=== PATIENT | male | born 1950 | race Caucasian/White ===

== ENCOUNTER 2017-10-06 14:12 | Day surgery (SDC) | payer MEDICARE ==
[~2017-10-06] VITALS: Ht 177.8 cm; Wt 92.8 kg
[~2017-10-06 14:12] MED LIST: ALLO300 PO; ASPI325 PO; ASPI81CH PO; BISA5EC PO; COLCRYS0.6 MG PO; DOCU100 PO; FAMO20 PO; FLUT44OIA; LEVSOD100 PO; LEVSOD137 PO; LOSA50 PO; MELA3 PO; MELATONIN 5 MG1 EACH PO; NEBI10 PO; Prilosec Otc20 MG PO; RANO500T PO; ROPI1 PO; SERT100 PO; Simvastatin20 MG PO; TENEX1 MG; TERB250; Vesicare10 MG PO
[2017-10-06] MEDS ORDERED: FURO20 (14:54)
== END 2017-10-06 17:05 | disposition home or self-care (01) ==
LOC: ORSCSDS 14:12
PROVIDERS: Ophthalmology
PROC: 080NXZZ Alteration of Right Upper Eyelid, External Approach (ICD-10-PCS; principal; 2017-10-06 16:00)
PROC: 080PXZZ Alteration of Left Upper Eyelid, External Approach (ICD-10-PCS; principal; 2017-10-06 16:00)
DX: H02.834 Dermatochalasis of left upper eyelid (principal); H02.831 Dermatochalasis of right upper eyelid; I25.10 Atherosclerotic heart disease of native coronary artery without angina pectoris; G47.33 Obstructive sleep apnea (adult) (pediatric); E11.9 Type 2 diabetes mellitus without complications; E03.9 Hypothyroidism, unspecified; G20 Parkinson's disease; N18.9 Chronic kidney disease, unspecified; Z79.82 Long term (current) use of aspirin; Z79.899 Other long term (current) drug therapy
CPT/HCPCS: J0171; J2250; J7040

== ENCOUNTER → 2019-12-20 | Outpatient (CLI) | payer MEDICARE ==
[~2019-12-20] MED LIST changes: +FURO20
== END | disposition home or self-care (01) ==
LOC: PLD 08:19 → LAB SHORT 08:19
DX: L57.8 Other skin changes due to chronic exposure to nonionizing radiation (principal)
CPT/HCPCS: 88305; 88342

== ENCOUNTER → 2020-12-13 | Outpatient (CLI) | payer MEDICARE ==
[2020-12-13 15:51] LABS: Hematocrit 45.7 % (37.0-53.0); Hemoglobin 15.4 g/dL (13.5-17.5); Mean Corpuscular HGB 32.2 pg (26.0-34.0); Mean Corpuscular HGB Conc 33.7 g/dL (31.5-36.5); Mean Corpuscular Volume 96 fL (80-100); Mean Platelet Volume 10.8 fL (9.1-12.4); Platelet Count 154 K/mm3 (150-400); RDW Standard Deviation 45.3 fL (35.1-46.3); Red Blood Cell Count 4.78 M/mm3 (4.30-5.90); White Blood Cell Count 8.07 K/mm3 (4.00-11.30)
[2020-12-13 15:56] LABS: Bun/Creatinine Ratio 12.3 (12.0-20.0); Calcium, Blood 8.7 mg/dL (8.5-10.1); Creatinine, Blood 1.71 mg/dL (0.60-1.20); Potassium, Blood 4.2 mmol/L (3.5-5.5)
[2020-12-13 16:41] LABS: BAND PERCENT MAN 19 % (0-8); BASOPHILS PERCENT MAN 0 % (0-2); EOSINOPHILS PERCENT MAN 0 % (0-6); LYMPHOCYTES ABSOLUTE MAN 0.32 K/mm3 (0.84-5.20); LYMPHOCYTES PERCENT MAN 4 % (21-46); MONOCYTES ABSOLUTE MAN 0.56 K/mm3 (0.16-1.47); MONOCYTES PERCENT MAN 7 % (4-13); NEUTROPHILS ABSOLUTE MAN 7.18 K/mm3 (1.96-9.15); SEG NEUTROPHILS PERCENT MAN 70 % (41-73); TOTAL CELLS COUNTED 100
== END | disposition home or self-care (01) ==
LOC: LAB SHORT 15:42
PROVIDERS: Physician Assistant Surgical
DX: R42 Dizziness and giddiness (principal); R53.83 Other fatigue
CPT/HCPCS: 80048; 84443; 85025

== ENCOUNTER 2021-04-09 07:44 | Day surgery (SDC) | payer MEDICARE ==
[~2021-04-09] VITALS: Ht 177.8 cm; Wt 83.3 kg
[~2021-04-09 07:44] MED LIST changes: +MIRT15ST; +SINEMET 25-1001 EAC1; +Vitamin B-121000 MCG; +Vitamin D1000 UNI1
--- NOTE | 2021-04-09 08:09 | NUR ---
04/09/21 0809 Kavon Matta CALL LIGHT WITHIN REACH. EYE DROPS AT 0759 PLEDGETT AT 0801
== END 2021-04-09 09:45 | disposition home or self-care (01) ==
LOC: ORSCSDS 07:44
PROVIDERS: Ophthalmology
PROC: 08RJ3JZ Replacement of Right Lens with Synthetic Substitute, Percutaneous Approach (ICD-10-PCS; principal; 2021-04-09 09:00)
DX: H25.11 Age-related nuclear cataract, right eye (principal); I10 Essential (primary) hypertension; I25.10 Atherosclerotic heart disease of native coronary artery without angina pectoris; G47.33 Obstructive sleep apnea (adult) (pediatric); E03.9 Hypothyroidism, unspecified; G20 Parkinson's disease; Z79.82 Long term (current) use of aspirin; Z79.899 Other long term (current) drug therapy
CPT/HCPCS: J2001; J2250; J3010; J3301; J7040; V2632

== ENCOUNTER 2023-03-25 15:27 | Emergency (ER) | payer MEDICARE ==
[~2023-03-25] VITALS: Ht 172.7 cm; Wt 63.5 kg
[2023-03-25 16:11] LABS: BASOPHILS ABSOLUTE AUTO 0.02 K/mm3 (0.00-0.23); BASOPHILS PERCENT AUTO 1 % (0-2); EOSINOPHILS ABSOLUTE AUTO 0.08 K/mm3 (0.00-0.68); EOSINOPHILS PERCENT AUTO 2 % (0-6); Hematocrit 30.7 % (37.0-53.0); Hemoglobin 10.5 g/dL (13.5-17.5); IMMATURE GRAN ABSOLUTE AUTO 0.05 K/mm3 (0.00-0.10); IMMATURE GRAN PERCENT AUTO 1 % (0-1); LYMPHOCYTES ABSOLUTE AUTO 0.51 K/mm3 (0.84-5.20); LYMPHOCYTES PERCENT AUTO 13 % (21-46); MONOCYTES ABSOLUTE AUTO 0.46 K/mm3 (0.16-1.47); MONOCYTES PERCENT AUTO 11 % (4-13); Mean Corpuscular HGB 33.5 pg (26.0-34.0); Mean Corpuscular HGB Conc 34.2 g/dL (31.5-36.5); Mean Corpuscular Volume 98 fL (80-100); Mean Platelet Volume 10.3 fL (9.1-12.4); NEUTROPHILS ABSOLUTE AUTO 2.92 K/mm3 (1.96-9.15); NEUTROPHILS PERCENT AUTO 72 % (41-73); Platelet Count 137 K/mm3 (150-400); RDW Coefficient Variation 13.2 % (11.7-14.2); RDW Standard Deviation 46.8 fL (35.1-46.3); Red Blood Cell Count 3.13 M/mm3 (4.30-5.90); White Blood Cell Count 4.04 K/mm3 (4.00-11.30)
[2023-03-25 16:19] LABS: Calcium, Blood 8.6 mg/dL (8.5-10.1); Creatinine, Blood 1.13 mg/dL (0.60-1.20)
[2023-03-25] MEDS ORDERED: GABA100 (16:34)
[2023-03-25] MEDS ORDERED: METO25ER PO (16:35)
[2023-03-25] MEDS ORDERED: FURO20 PO (16:35)
[2023-03-25 17:04] LABS: Percent Saturation 31.2 % (20.0-50.0)
[2023-03-25 17:45] VITALS: BP 153/74
== END 2023-03-25 17:56 | disposition home or self-care (01) ==
LOC: ER 15:27
PROVIDERS: Student in an Organized Health Care Education/Training Program
DX: S09.90XA Unspecified injury of head, initial encounter (principal); R55 Syncope and collapse; E86.0 Dehydration; G20.C Parkinsonism, unspecified; W18.30XA Fall on same level, unspecified, initial encounter; T50.905A Adverse effect of unspecified drugs, medicaments and biological substances, initial encounter; Z88.8 Allergy status to other drugs, medicaments and biological substances; Z79.899 Other long term (current) drug therapy; Z79.82 Long term (current) use of aspirin
CPT/HCPCS: 70450; 80048; 82728; 83540; 83550; 85025; 93005; 93010; 99285-25; J7030

== ENCOUNTER 2023-09-13 10:54 | Inpatient (IN) | payer MEDICARE ==
[~2023-09-13] VITALS: Ht 177.8 cm; Wt 79.8 kg
[~2023-09-13 10:54] MED LIST changes: +ALLO100 PO; -ALLO300 PO; +FURO40 PO; +GABA100; -LEVSOD100 PO; +LEVSOD150 PO; +METO25ER PO
[2023-09-13] MEDS ORDERED: NS 1,000 ML IV SCH ×2 (11:10→13:25)
[2023-09-13 11:19] LABS: BASOPHILS ABSOLUTE AUTO 0.02 K/mm3 (0.00-0.23); BASOPHILS PERCENT AUTO 0 % (0-2); EOSINOPHILS PERCENT AUTO 0 % (0-6); Hematocrit 33.4 % (37.0-53.0); Hemoglobin 11.2 g/dL (13.5-17.5); IMMATURE GRAN ABSOLUTE AUTO 0.12 K/mm3 (0.00-0.10); IMMATURE GRAN PERCENT AUTO 1 % (0-1); LYMPHOCYTES ABSOLUTE AUTO 0.26 K/mm3 (0.84-5.20); LYMPHOCYTES PERCENT AUTO 2 % (21-46); MONOCYTES ABSOLUTE AUTO 0.66 K/mm3 (0.16-1.47); MONOCYTES PERCENT AUTO 5 % (4-13); Mean Corpuscular HGB 32.2 pg (26.0-34.0); Mean Corpuscular HGB Conc 33.5 g/dL (31.5-36.5); Mean Corpuscular Volume 96 fL (80-100); Mean Platelet Volume 9.3 fL (9.1-12.4); NEUTROPHILS ABSOLUTE AUTO 12.46 K/mm3 (1.96-9.15); NEUTROPHILS PERCENT AUTO 92 % (41-73); Platelet Count 238 K/mm3 (150-400); RDW Coefficient Variation 13.2 % (11.7-14.2); RDW Standard Deviation 46.8 fL (35.1-46.3); Red Blood Cell Count 3.48 M/mm3 (4.30-5.90); White Blood Cell Count 13.52 K/mm3 (4.00-11.30)
[2023-09-13 11:44] LABS: Albumin, Blood 3.2 g/dL (3.4-5.0); Albumin/Globulin Ratio 0.8 (0.8-1.8); Bilirubin, Total 0.9 mg/dL (0.1-1.0); Bun/Creatinine Ratio 17.2 (12.0-20.0); Calcium, Blood 9.1 mg/dL (8.5-10.1); Creatinine, Blood 1.45 mg/dL (0.60-1.20); Globulin, Blood 4.1 g/dL (2.2-4.0); Potassium, Blood 4.4 mmol/L (3.5-5.5); Total Protein, Blood 7.3 g/dL (6.4-8.2)
[2023-09-13 11:45] LABS: BAND PERCENT MAN 1 % (0-8); BASOPHILS PERCENT MAN 0 % (0-2); EOSINOPHILS ABSOLUTE MAN 0.27 K/mm3 (0.00-0.68); EOSINOPHILS PERCENT MAN 2 % (0-6); LYMPHOCYTES ABSOLUTE MAN 0.27 K/mm3 (0.84-5.20); LYMPHOCYTES PERCENT MAN 2 % (21-46); MONOCYTES ABSOLUTE MAN 0.67 K/mm3 (0.16-1.47); MONOCYTES PERCENT MAN 5 % (4-13); SEG NEUTROPHILS PERCENT MAN 90 % (41-73); TOTAL CELLS COUNTED 100
[2023-09-13 12:16] LABS: Source, Urine Clean Catch
[2023-09-13 12:22] LABS: Appearance, Urine Hazy (Clear); Bilirubin, Urine Neg (Neg); Blood, Urine 5+ (Neg); Color, Urine Yellow (P-Yellow); Glucose Qualitative, Urine Neg (Neg); Ketones, Urine Neg (Neg); Leukocyte Esterase, Urine 3+ (Neg); Nitrite, Urine Neg (Neg); Protein, Urine 3+ (Neg); Urobilinogen, Urine NORM (Normal)
[2023-09-13 12:29] LABS: Bacteria Many /hpf; Squamous Epithelial Cells Rare /hpf (Few); White Blood Cells, Urine 25-50 /hpf (0-5)
[2023-09-13] MEDS ORDERED: CefTRIAXone Sodium 1,000 MG in NS 100 ML IV ONE (12:55)
[2023-09-13] MEDS ORDERED: CARBIDOPA-LEVO1 EA21 PO (16:24)
[2023-09-13] MEDS ORDERED: CARBLEV250 PO (16:26)
[2023-09-13] MEDS ORDERED: CARBIDOPA-LEVO1 EA15 PO (16:26)
[2023-09-13] MEDS ORDERED: GABA100 PO (16:28)
[2023-09-13 17:08] VITALS: BP 149/88
[2023-09-13] MEDS ORDERED: Acetaminophen 325 MG TABLET PO PRN (17:15)
--- NOTE | 2023-09-13 18:31 | NUR ---
PT ARRIVED TO ROOM AT 1700. PT FELT VERY HOT TO THE TOUCH AND IS AOX1 WITH CONFUSION. PT IS RESTLESS IN BED AND SEEMS TO BE SHAKING A LOT. 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 TEMP WAS 101.[address] VALE ORDERED TYLENOL TO EMAR. TYLENOL WAS GIVEN AND TEMP WILL BE RECHECK. PT IS CURRENTLY SLEEPING WITH SON AT BEDSIDE AND BED ALARM IS ON. PT IS INCONTENTENT OF URINE AT THIS TIME. WILL CONTINUE TO MONITOR.
[2023-09-13 19:55] VITALS: BP 128/80
[2023-09-13] MEDS ORDERED: Levodopa/Carbidopa 100 / 10 MG Tab PO SCH (20:00)
[2023-09-13] MEDS ORDERED: Levodopa/Carbidopa 100/25 MG Tab *CR PO SCH (21:00)
[2023-09-13] MEDS ORDERED: Melatonin 5 MG Tablet PO SCH (21:00)
[2023-09-14 03:23] VITALS: BP 137/90
[2023-09-14] MEDS ORDERED: Levothyroxine Sodium 0.15 MG Tab PO SCH (06:00)
[2023-09-14 06:07] LABS: BASOPHILS ABSOLUTE AUTO 0.02 K/mm3 (0.00-0.23); BASOPHILS PERCENT AUTO 0 % (0-2); EOSINOPHILS PERCENT AUTO 0 % (0-6); Hematocrit 31.8 % (37.0-53.0); Hemoglobin 10.6 g/dL (13.5-17.5); IMMATURE GRAN ABSOLUTE AUTO 0.13 K/mm3 (0.00-0.10); IMMATURE GRAN PERCENT AUTO 1 % (0-1); LYMPHOCYTES PERCENT AUTO 1 % (21-46); MONOCYTES ABSOLUTE AUTO 0.52 K/mm3 (0.16-1.47); MONOCYTES PERCENT AUTO 4 % (4-13); Mean Corpuscular HGB 32.2 pg (26.0-34.0); Mean Corpuscular HGB Conc 33.3 g/dL (31.5-36.5); Mean Corpuscular Volume 97 fL (80-100); Mean Platelet Volume 9.3 fL (9.1-12.4); NEUTROPHILS ABSOLUTE AUTO 14.12 K/mm3 (1.96-9.15); NEUTROPHILS PERCENT AUTO 94 % (41-73); Platelet Count 179 K/mm3 (150-400); RDW Coefficient Variation 13.5 % (11.7-14.2); RDW Standard Deviation 48.3 fL (35.1-46.3); Red Blood Cell Count 3.29 M/mm3 (4.30-5.90); White Blood Cell Count 14.99 K/mm3 (4.00-11.30)
[2023-09-14 06:43] LABS: Albumin, Blood 2.8 g/dL (3.4-5.0); Anion Gap 10 mmol/L (3-11); Blood Urea Nitrogen 26 mg/dL (8-24); Bun/Creatinine Ratio 18.3 (12.0-20.0); CO2, Blood 25 mmol/L (21-32); Calcium, Blood 8.6 mg/dL (8.5-10.1); Chloride, Blood 108 mmol/L (98-108); Creatinine, Blood 1.42 mg/dL (0.60-1.20); Glomerular Filtration Rate 52 (60-); Glucose, Blood 101 mg/dL (70-99); Magnesium, Blood 1.9 mg/dL (1.6-2.4); Phosphorus, Blood 2.3 mg/dL (2.5-4.9); Potassium, Blood 3.6 mmol/L (3.5-5.5); Sodium, Blood 139 mmol/L (136-145)
[2023-09-14 06:59] LABS: BAND PERCENT MAN 3 % (0-8); BASOPHILS PERCENT MAN 0 % (0-2); EOSINOPHILS PERCENT MAN 0 % (0-6); LYMPHOCYTES ABSOLUTE MAN 0.29 K/mm3 (0.84-5.20); LYMPHOCYTES PERCENT MAN 2 % (21-46); MONOCYTES ABSOLUTE MAN 0.29 K/mm3 (0.16-1.47); MONOCYTES PERCENT MAN 2 % (4-13); NEUTROPHILS ABSOLUTE MAN 14.39 K/mm3 (1.96-9.15); SEG NEUTROPHILS PERCENT MAN 93 % (41-73); TOTAL CELLS COUNTED 100
[2023-09-14 07:28] VITALS: BP 122/71
[2023-09-14] MEDS ORDERED: Heparin Sodium,Porcine 5,000 UNIT/0.5 ML SDV SC SCH (09:00)
[2023-09-14] MEDS ORDERED: CefTRIAXone Sodium 1,000 MG in NS 100 ML IV SCH (09:00)
[2023-09-14] MEDS ORDERED: Aspirin 81 MG Chew PO SCH (09:00)
[2023-09-14] MEDS ORDERED: Metoprolol Succinate 25 MG TABCR PO SCH (09:00)
--- NOTE | 2023-09-14 09:16 | NUR ---
SHIFT SUMMARY PT IS A&OX2-3, HE DOES NOT KNOW THE SITUATION OR THE DATE. VSS ON RA, T MAX 100.4. PRN TYLENOL GIVEN FOR COMFORT. PT INCONTINENT OF URINE, BRIEF IN PLACE. NO BM THIS SHIFT. TOLERATING THIN LIQUIDS AND PILLS WHOLE TWO AT A TIME WITH WATER. PT HAS ABRASIONS ON BOTH KNEES AND BRUISES SCATTERED T/O R/T RECENT FALLS. PT HAS EXTREME TREMORS IN ALL EXTREMETIES R/T PARKINSONS. BED IN LOWEST POSITION, CALL LIGHT WITHIN REACH. BED ALARM SET FOR PT'S SAFETY AND FREQUENT ROUNDING DONE. + BLOOD CULTURES IN TWO SETS, GRAM NEGATIVE BACILLI.
[2023-09-14 16:02] VITALS: BP 115/67
--- NOTE | 2023-09-14 16:41 | NUR ---
PT IS IMPROVING AND AT THIS POINT IN SHIFT WOULD BE AOX2 WITH CONFUSION. PT WAS EVEN REQUESTING THE AID BY HER NAME AND AT THE START OF SHIFT WOULD NOT HAVE BEEN ABLE TO. PT IS RESTING IN BED WAS A 1 PERSON WITH WALKER TO RESTROOM AND REQUESTED TO BE TAKEN IN FOR A BOWEL MOVEMENT. PT DOING WELL AT THIS TIME AND HAS NOT BEEN IMPULSIVE. CALL LIGHT IS WITHIN REACH WILL CONTINUE TO MONITOR.
[2023-09-14] MEDS ORDERED: Mirtazapine 15 MG SoluTab PO SCH (18:00)
[2023-09-14] MEDS ORDERED: Gabapentin 100 MG Cap PO SCH (18:00)
[2023-09-14 19:48] VITALS: BP 86/60
[2023-09-14 19:51] VITALS: BP 91/56
[2023-09-14] MEDS ORDERED: Sodium Chloride 0.45% 1,000 ML IV SCH (20:10)
[2023-09-15 03:12] VITALS: BP 137/77
--- NOTE | 2023-09-15 05:56 | NUR ---
Patient slept most of night. Very somnolent and difficult to wake early in shift to safely take HS medications. two large incontinent voids overnight. Woke early in AM and was conversant and easily cooperative with this RN to change positions and take medications. one liter 0.45 saline infused through shift.
[2023-09-15 06:27] LABS: BASOPHILS ABSOLUTE AUTO 0.03 K/mm3 (0.00-0.23); BASOPHILS PERCENT AUTO 0 % (0-2); EOSINOPHILS ABSOLUTE AUTO 0.01 K/mm3 (0.00-0.68); EOSINOPHILS PERCENT AUTO 0 % (0-6); Hematocrit 32.4 % (37.0-53.0); Hemoglobin 10.5 g/dL (13.5-17.5); IMMATURE GRAN ABSOLUTE AUTO 0.27 K/mm3 (0.00-0.10); IMMATURE GRAN PERCENT AUTO 2 % (0-1); LYMPHOCYTES ABSOLUTE AUTO 0.25 K/mm3 (0.84-5.20); LYMPHOCYTES PERCENT AUTO 2 % (21-46); MONOCYTES ABSOLUTE AUTO 0.47 K/mm3 (0.16-1.47); MONOCYTES PERCENT AUTO 4 % (4-13); Mean Corpuscular HGB 32.1 pg (26.0-34.0); Mean Corpuscular HGB Conc 32.4 g/dL (31.5-36.5); Mean Corpuscular Volume 99 fL (80-100); Mean Platelet Volume 9.8 fL (9.1-12.4); NEUTROPHILS PERCENT AUTO 92 % (41-73); Platelet Count 161 K/mm3 (150-400); RDW Coefficient Variation 13.7 % (11.7-14.2); RDW Standard Deviation 50.5 fL (35.1-46.3); Red Blood Cell Count 3.27 M/mm3 (4.30-5.90); White Blood Cell Count 12.63 K/mm3 (4.00-11.30)
[2023-09-15 06:49] LABS: Albumin, Blood 2.4 g/dL (3.4-5.0); Anion Gap 12 mmol/L (3-11); Blood Urea Nitrogen 33 mg/dL (8-24); Bun/Creatinine Ratio 24.4 (12.0-20.0); CO2, Blood 23 mmol/L (21-32); Calcium, Blood 8.2 mg/dL (8.5-10.1); Chloride, Blood 103 mmol/L (98-108); Creatinine, Blood 1.35 mg/dL (0.60-1.20); Glomerular Filtration Rate 55 (60-); Glucose, Blood 97 mg/dL (70-99); Phosphorus, Blood 2.9 mg/dL (2.5-4.9); Potassium, Blood 4.1 mmol/L (3.5-5.5); Sodium, Blood 134 mmol/L (136-145)
[2023-09-15 07:03] LABS: BAND PERCENT MAN 2 % (0-8); BASOPHILS PERCENT MAN 0 % (0-2); EOSINOPHILS PERCENT MAN 0 % (0-6); LYMPHOCYTES ABSOLUTE MAN 0.12 K/mm3 (0.84-5.20); LYMPHOCYTES PERCENT MAN 1 % (21-46); MONOCYTES ABSOLUTE MAN 0.25 K/mm3 (0.16-1.47); MONOCYTES PERCENT MAN 2 % (4-13); NEUTROPHILS ABSOLUTE MAN 12.25 K/mm3 (1.96-9.15); SEG NEUTROPHILS PERCENT MAN 95 % (41-73); TOTAL CELLS COUNTED 100
[2023-09-15 07:50] VITALS: BP 115/88
--- NOTE | 2023-09-15 16:35 | NUR ---
SHIFT SUMMARY MR ORTEGA IS ABLE TO ANSWER ORIENTATION QUESTIONS, SOMETIMES FORGETFUL BUT APPROPRIATE CONVERSATION. HE WORKED WITH OT, PT AND ST TODAY, AMBULATED IN THE HALLS, SAT UP IN THE CHAIR FOR A FEW HOURS, WALKED IN TO THE BATHROOM. 1 PERSON ASSIST, FWW AND GAIT BELT FOR AMBULATION. POOR APPETITE, FOOD AND FLUIDS ENCOURAGED. SUPPORTIVE FAMILY AT BEDSIDE. MR ORTEGA TENDS TO LEAN TO HIS RIGHT WHEN SITTING AND LYING. HE SAID THIS IS FROM HAVING THE RIGHT LEG SHORTER THAN THE LEFT FOR SO MANY YEARS. HIS CARE WORKER BROUGHT HIS IN TO VISIT TODAY. WHEN MR ORTEGA IS DISCHARGED SON DEREK AND CARE WORKER SAID THEY WILL HAVE 24HR CARE WORKERS AVAILABLE FROM A PRIVATE AGENCY. FEVER THIS AM ~101.5 IMPROVED AFTER TYLENOL. BED LOW, CALL LIGHT IN REACH, BED AND CHAIR ALARMS IN USE.
[2023-09-15 16:49] VITALS: BP 145/88
[2023-09-15 19:38] VITALS: BP 146/77
[2023-09-16 03:05] VITALS: BP 116/80
--- NOTE | 2023-09-16 04:55 | NUR ---
SHIFT SUMMARY 73 YR M ADMITTED ON 09/13/23. DNR. NO ACUTE CHANGES THIS SHIFT. PT HAS BEEN CONT/INCONT THIS SHIFT. HE CALLED FOR ASSISTANCE TO THE BATHROOM BUT HAD ALREADY BEEN INCONT. HE HAS SLEPT FOR MOST OF THIS SHIFT. BED IN LOW POSITION AND CALL LIGHT IN REACH. BED ALARM ON FOR SAFETY.
[2023-09-16 06:09] LABS: BASOPHILS ABSOLUTE AUTO 0.04 K/mm3 (0.00-0.23); BASOPHILS PERCENT AUTO 0 % (0-2); EOSINOPHILS ABSOLUTE AUTO 0.02 K/mm3 (0.00-0.68); EOSINOPHILS PERCENT AUTO 0 % (0-6); Hematocrit 32.3 % (37.0-53.0); Hemoglobin 10.5 g/dL (13.5-17.5); IMMATURE GRAN ABSOLUTE AUTO 0.19 K/mm3 (0.00-0.10); IMMATURE GRAN PERCENT AUTO 2 % (0-1); LYMPHOCYTES ABSOLUTE AUTO 0.26 K/mm3 (0.84-5.20); LYMPHOCYTES PERCENT AUTO 2 % (21-46); MONOCYTES ABSOLUTE AUTO 0.73 K/mm3 (0.16-1.47); MONOCYTES PERCENT AUTO 6 % (4-13); Mean Corpuscular HGB 31.9 pg (26.0-34.0); Mean Corpuscular HGB Conc 32.5 g/dL (31.5-36.5); Mean Corpuscular Volume 98 fL (80-100); Mean Platelet Volume 10.2 fL (9.1-12.4); NEUTROPHILS ABSOLUTE AUTO 10.87 K/mm3 (1.96-9.15); NEUTROPHILS PERCENT AUTO 90 % (41-73); Platelet Count 168 K/mm3 (150-400); RDW Coefficient Variation 13.6 % (11.7-14.2); RDW Standard Deviation 48.9 fL (35.1-46.3); Red Blood Cell Count 3.29 M/mm3 (4.30-5.90); White Blood Cell Count 12.11 K/mm3 (4.00-11.30)
[2023-09-16 06:42] LABS: Magnesium, Blood 2.3 mg/dL (1.6-2.4)
[2023-09-16 06:43] LABS: Albumin, Blood 2.2 g/dL (3.4-5.0); Anion Gap 13 mmol/L (3-11); Blood Urea Nitrogen 40 mg/dL (8-24); Bun/Creatinine Ratio 20.6 (12.0-20.0); CO2, Blood 22 mmol/L (21-32); Calcium, Blood 8.6 mg/dL (8.5-10.1); Chloride, Blood 103 mmol/L (98-108); Creatinine, Blood 1.94 mg/dL (0.60-1.20); Glomerular Filtration Rate 35 (60-); Glucose, Blood 99 mg/dL (70-99); Phosphorus, Blood 3.1 mg/dL (2.5-4.9); Sodium, Blood 134 mmol/L (136-145)
[2023-09-16 07:30] VITALS: BP 137/81
[2023-09-16 16:03] VITALS: BP 127/79
[2023-09-16] MEDS ORDERED: Acetaminophen325 M1 PO (16:46)
[2023-09-16] MEDS ORDERED: SULTRIDS PO (16:46)
--- NOTE | 2023-09-16 17:32 | NUR ---
SHIFT/DISCHARGE SUMMARY: PATIENT A/OX3, FLAT AFFECT, PLEASANT AND COOPERATIVE c CARE. PATIENT DENIES CP/PRESSURE, N/V, DIZZINESS, SOB AND NO FEVER. PATIENT INCON/CONTIN OF BLADDER, AMBULATES TO BATHROOM/BACK TO BED/CHAIR c 1 ASSIST/GAITBELT AND FWW. PATIENT EATING AND DRINKING WELL c NO SIGNS OF DIFFICULTY SWALLOWING. PATIENT RECEIVED IV ABX AND SCHEDULED MEDS PER EMAR. VITAL SIGNS REVIEWED. PIV TO R FOREARM DC'D. PATIENT DISCHARGE HOME. DISCHARGE INSTRUCTIONS PACKET GIVEN TO PATIENT. EDUCATE PATIENT REGARDING ADMITTING DX'S SEPSIS D/T UTI, S/S, TX, NEW PRESCRIBED RX, SELF CARE, HH SERVICES, AND TO FOLLOW UP c PCP. PATIENT/SON AT BEDSIDE VERBALIZED UNDERSTANDING AND NO FURTHER QUESTIONS AT THIS TIME. RX WAS FAXED TO PATIENT PREFERRED PHARMACY-[facility]. ALL PATIENT PERSONAL BELONGINGS WERE SENT HOME c THE PATIENT. PATIENT LEFT THE ROOM AT 1720 AND WAS TRANSPORTED VIA WHEELCHAIR BY LOG LOADER STAFF, ASHLEY PATTON TO PATIENT ENTRANCE.
== END 2023-09-16 17:24 | disposition home health service (06) | DRG 871 ==
LOC: ER 10:54 → MEDS 14:50
PROVIDERS: Emergency Medicine; ADMIT Family Medicine
DX: A41.50 Gram-negative sepsis, unspecified (principal); G93.41 Metabolic encephalopathy; N17.9 Acute kidney failure, unspecified; G20.A1 Parkinson's disease without dyskinesia, without mention of fluctuations; E03.9 Hypothyroidism, unspecified; E78.5 Hyperlipidemia, unspecified; M10.9 Gout, unspecified; K21.9 Gastro-esophageal reflux disease without esophagitis; E11.40 Type 2 diabetes mellitus with diabetic neuropathy, unspecified; Z66 Do not resuscitate; F32.A Depression, unspecified; I25.10 Atherosclerotic heart disease of native coronary artery without angina pectoris; H26.9 Unspecified cataract; N40.0 Benign prostatic hyperplasia without lower urinary tract symptoms; Z85.46 Personal history of malignant neoplasm of prostate; I12.9 Hypertensive chronic kidney disease with stage 1 through stage 4 chronic kidney disease, or unspecified chronic kidney disease; E11.22 Type 2 diabetes mellitus with diabetic chronic kidney disease; N18.9 Chronic kidney disease, unspecified; E66.3 Overweight; Z88.8 Allergy status to other drugs, medicaments and biological substances; Z79.899 Other long term (current) drug therapy; Z79.82 Long term (current) use of aspirin; Z79.890 Hormone replacement therapy; Z95.5 Presence of coronary angioplasty implant and graft; Z98.890 Other specified postprocedural states
CPT/HCPCS: 36415; 71045; 80053; 80069; 81001; 83605; 83735; 84484; 85025; 87040; 87077; 87086; 87186; 92526; 92610; 93005; 93010; 96361; 96365; 97110; 97112; 97116; 97162; 97166; 97530; 97535; 99285-25; A9270; J0696; J1644; J7030

== ENCOUNTER 2023-09-21 22:07 | Inpatient (IN) | payer MEDICARE ==
[~2023-09-21] VITALS: Ht 177.8 cm; Wt 78.3 kg
[~2023-09-21 22:07] MED LIST changes: +Acetaminophen325 M1 PO; +CARBIDOPA-LEVO1 EA15 PO; +CARBIDOPA-LEVO1 EA21 PO; +CARBLEV250 PO; +GABA100 PO; +SULTRIDS PO
[2023-09-21 22:30] LABS: Hematocrit 28.3 % (37.0-53.0); Hemoglobin 9.2 g/dL (13.5-17.5); Mean Corpuscular HGB 31.6 pg (26.0-34.0); Mean Corpuscular HGB Conc 32.5 g/dL (31.5-36.5); Mean Corpuscular Volume 97 fL (80-100); Mean Platelet Volume 9.8 fL (9.1-12.4); Platelet Count 262 K/mm3 (150-400); RDW Coefficient Variation 13.7 % (11.7-14.2); RDW Standard Deviation 49.2 fL (35.1-46.3); Red Blood Cell Count 2.91 M/mm3 (4.30-5.90); White Blood Cell Count 9.38 K/mm3 (4.00-11.30)
[2023-09-21 22:57] LABS: Albumin, Blood 2.4 g/dL (3.4-5.0); Albumin/Globulin Ratio 0.7 (0.8-1.8); Bilirubin, Total 0.4 mg/dL (0.1-1.0); Calcium, Blood 8.3 mg/dL (8.5-10.1); Creatinine, Blood 2.18 mg/dL (0.60-1.20); Globulin, Blood 3.5 g/dL (2.2-4.0); Potassium, Blood 4.4 mmol/L (3.5-5.5); Total Protein, Blood 5.9 g/dL (6.4-8.2)
[2023-09-21 23:33] LABS: BAND PERCENT MAN 8 % (0-8); BASOPHILS PERCENT MAN 0 % (0-2); EOSINOPHILS PERCENT MAN 0 % (0-6); LYMPHOCYTES % ATYPICAL MANUAL 1 % (0-0); LYMPHOCYTES ABSOLUTE MAN 0.28 K/mm3 (0.84-5.20); LYMPHOCYTES PERCENT MAN 2 % (21-46); METAMYELOCYTE ABSOLUTE MAN 0.46 K/mm3 (0.00-0.00); METAMYELOCYTE PERCENT MAN 5 % (0-0); MONOCYTES ABSOLUTE MAN 0.56 K/mm3 (0.16-1.47); MONOCYTES PERCENT MAN 6 % (4-13); MYELOCYTE ABSOLUTE MAN 0.28 K/mm3 (0.00-0.00); MYELOCYTE PERCENT MAN 3 % (0-0); NEUTROPHILS ABSOLUTE MAN 7.78 K/mm3 (1.96-9.15); SEG NEUTROPHILS PERCENT MAN 75 % (41-73); TOTAL CELLS COUNTED 100
[2023-09-22] MEDS ORDERED: NS 1,000 ML IV SCH ×2 (00:25→13:00)
[2023-09-22 02:36] LABS: Hematocrit 26.7 % (37.0-53.0); Hemoglobin 8.7 g/dL (13.5-17.5); Mean Corpuscular HGB 32.1 pg (26.0-34.0); Mean Corpuscular HGB Conc 32.6 g/dL (31.5-36.5); Mean Corpuscular Volume 99 fL (80-100); Mean Platelet Volume 9.5 fL (9.1-12.4); Platelet Count 234 K/mm3 (150-400); RDW Coefficient Variation 13.9 % (11.7-14.2); RDW Standard Deviation 49.7 fL (35.1-46.3); Red Blood Cell Count 2.71 M/mm3 (4.30-5.90); White Blood Cell Count 8.42 K/mm3 (4.00-11.30)
[2023-09-22 03:13] LABS: Albumin, Blood 2.3 g/dL (3.4-5.0); Albumin/Globulin Ratio 0.7 (0.8-1.8); Bilirubin, Total 0.3 mg/dL (0.1-1.0); Bun/Creatinine Ratio 10.7 (12.0-20.0); Calcium, Blood 7.9 mg/dL (8.5-10.1); Creatinine, Blood 2.14 mg/dL (0.60-1.20); Globulin, Blood 3.3 g/dL (2.2-4.0); Potassium, Blood 4.1 mmol/L (3.5-5.5); Total Protein, Blood 5.6 g/dL (6.4-8.2)
[2023-09-22 03:25] LABS: BAND PERCENT MAN 13 % (0-8); BASOPHILS ABSOLUTE MAN 0.08 K/mm3 (0.00-0.23); BASOPHILS PERCENT MAN 1 % (0-2); EOSINOPHILS ABSOLUTE MAN 0.25 K/mm3 (0.00-0.68); EOSINOPHILS PERCENT MAN 3 % (0-6); LYMPHOCYTES ABSOLUTE MAN 0.25 K/mm3 (0.84-5.20); LYMPHOCYTES PERCENT MAN 3 % (21-46); METAMYELOCYTE ABSOLUTE MAN 0.16 K/mm3 (0.00-0.00); METAMYELOCYTE PERCENT MAN 2 % (0-0); MONOCYTES ABSOLUTE MAN 0.08 K/mm3 (0.16-1.47); MONOCYTES PERCENT MAN 1 % (4-13); MYELOCYTE ABSOLUTE MAN 0.25 K/mm3 (0.00-0.00); MYELOCYTE PERCENT MAN 3 % (0-0); NEUTROPHILS ABSOLUTE MAN 7.32 K/mm3 (1.96-9.15); SEG NEUTROPHILS PERCENT MAN 74 % (41-73); TOTAL CELLS COUNTED 100
[2023-09-22] MEDS ORDERED: Acetaminophen 325 MG TABLET PO PRN (04:45)
--- NOTE | 2023-09-22 06:15 | NUR ---
NEW ADMIT PATIENT ADMITTED TO MEDICAL FLOOR FROM ER FOR ACUTE ON CHRONIS RENAL INSUFFICIENCY. PATIENT HAS CONDOM CATH IN PLACE. PATIENT IS A 1-2 PERSON ASSIST WITH FWW. PATIENT USES FWW AT BASELINE. PATIENT HAS CAREGIVER THAT IS IN FOR HALF DAYS TUESDAY THRU TUESDAY. PATIENT IS ABLE TO MAKE HIS NEEDS KNOWN. PATIENT RECENTLY SEEN INPATIENT IN AUGUST. PATIENT DENIES CHEST PAIN/PRESSURE/TIGHTNESS. PATIENT DENIES OTHER PAIN. PATIENT HAS A CONDOM CATH IN PLACE FOR INCONTINENCE. PATIENT REPORTS HE KNOWS WHEN HE NEEDS TO HAVE A BM AND SELDOM HAS INCONTINENCE WITH BOWEL. 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 IV TO LEFT AC IS PATENT. PATIENTS BED IS LOCKED IN THE LOWEST POSITION WITH CALL LIGHT IN REACH. CARE IS ONGOING.
[2023-09-22 06:19] VITALS: BP 132/81
[2023-09-22 06:43] LABS: Percent Saturation 17.6 % (20.0-50.0)
[2023-09-22 07:22] VITALS: BP 132/95
[2023-09-22 13:41] VITALS: BP 149/85
[2023-09-22] MEDS ORDERED: LEVODOPA PO SCH (14:00)
[2023-09-22] MEDS ORDERED: RAPDIS PO SCH (14:00)
[2023-09-22] MEDS ORDERED: CARBIDOPA PO SCH (14:00)
[2023-09-22] MEDS ORDERED: Levothyroxine Sodium 0.15 MG Tab PO SCH (14:20)
[2023-09-22] MEDS ORDERED: POTA8 PO (15:04)
[2023-09-22] MEDS ORDERED: Simvastatin40 MG PO (15:05)
[2023-09-22] MEDS ORDERED: ZOLOFT10013 PO (15:06)
[2023-09-22] MEDS ORDERED: Levodopa/Carbidopa 100 / 10 MG Tab PO SCH (16:00)
[2023-09-22 16:42] LABS: Albumin, Blood 2.4 g/dL (3.4-5.0); Albumin/Globulin Ratio 0.6 (0.8-1.8); Bilirubin, Total 0.3 mg/dL (0.1-1.0); Calcium, Blood 8.2 mg/dL (8.5-10.1); Creatinine, Blood 2.12 mg/dL (0.60-1.20); Globulin, Blood 3.8 g/dL (2.2-4.0); Potassium, Blood 4.5 mmol/L (3.5-5.5); Total Protein, Blood 6.2 g/dL (6.4-8.2)
--- NOTE | 2023-09-22 18:31 | NUR ---
SHIFT SUMMARY- PT ALERT AND ORIENTED. 1-2 PA WITH TRANSFERS. PT WAS UNABLE TO MAINTAIN CONDOM CATH. CALLED [facility] AND REQUESTED THE SMALLEST CONDOM CATH. ORDERED A UA WITH CULTURE IF INDICATED THE PT WAS PREVIOUSLY ADMITTED WITH UROSEPSIS AND SENT HOME ON ANTIBIOTICS. PT HAD APPROX 5 DAYS LEFT OF ABX. ORDERED UA TO ENSURE ABX ARE STILL NEEDED FOR THIS PT. DR HAAS WANTED TO DO A RENAL CT HOWEVER THE PT RENAL FUNCTION WAS TOO POOR. PT RECIEVED A 1L FLUID BOLUS AND LAB RECHECK SHOWS THE RENAL FUNCTION UNCHANGED. SPOKE TO AFTER THE RESULTS POSTED. NEW PLAN IS TO HOLD OFF ON THE CT WITH CONTRAST AND RECHECK THE PT KIDNEY FUNCTION IN THE AM. PT IN BED, CALL LIGHT IN REACH. HE HAS BEEN SLEEPING OFF AND ON T/O THE DAY, NO CURRENT S&S OF DISTRESS NOTED.
[2023-09-22 19:15] LABS: Source, Urine Clean Catch
[2023-09-22 19:19] LABS: Bilirubin, Urine Neg (Neg); Blood, Urine 4+ (Neg); Glucose Qualitative, Urine Neg (Neg); Ketones, Urine Neg (Neg); Leukocyte Esterase, Urine 3+ (Neg); Nitrite, Urine Neg (Neg); Protein, Urine Neg (Neg); Urobilinogen, Urine NORM (Normal)
[2023-09-22 19:28] LABS: Appearance, Urine Hazy (Clear); Color, Urine Pale Yellow (P-Yellow)
[2023-09-22 19:30] LABS: Amorphous Light (0-Heavy); Bacteria Mod /hpf; Red Blood Cells, Urine 0-2 /hpf (0-2); Squamous Epithelial Cells Few /hpf (Few); White Blood Cells, Urine 50-100 /hpf (0-5)
[2023-09-22 20:21] VITALS: BP 145/84
[2023-09-22] MEDS ORDERED: Gabapentin 100 MG Cap PO SCH (21:00)
[2023-09-23 04:27] VITALS: BP 142/89
--- NOTE | 2023-09-23 05:04 | NUR ---
END OF SHIFT SUMMARY PT A&OX4, FLAT AFFECT. HX OF PARKINSONS, TREMORS PRESENT TO BUE. NOOB THIS SHIFT. FREQUENT URINARY INCONTINENCE, CHANGED BRIEF/BURRITO NEEDED. DENIED PAIN. NO ACUTE EVENTS OVERNIGHT.
[2023-09-23 05:35] LABS: Hematocrit 28.9 % (37.0-53.0); Hemoglobin 9.5 g/dL (13.5-17.5); Mean Corpuscular HGB 31.6 pg (26.0-34.0); Mean Corpuscular HGB Conc 32.9 g/dL (31.5-36.5); Mean Corpuscular Volume 96 fL (80-100); Mean Platelet Volume 9.5 fL (9.1-12.4); Platelet Count 253 K/mm3 (150-400); RDW Coefficient Variation 13.8 % (11.7-14.2); RDW Standard Deviation 49.2 fL (35.1-46.3); Red Blood Cell Count 3.01 M/mm3 (4.30-5.90); White Blood Cell Count 9.12 K/mm3 (4.00-11.30)
[2023-09-23] MEDS ORDERED: Levothyroxine Sodium 0.15 MG Tab PO SCH (06:00)
[2023-09-23 06:28] LABS: Albumin, Blood 2.5 g/dL (3.4-5.0); Albumin/Globulin Ratio 0.7 (0.8-1.8); Bilirubin, Total 0.4 mg/dL (0.1-1.0); Bun/Creatinine Ratio 7.9 (12.0-20.0); Calcium, Blood 8.6 mg/dL (8.5-10.1); Creatinine, Blood 2.16 mg/dL (0.60-1.20); Globulin, Blood 3.7 g/dL (2.2-4.0); Potassium, Blood 4.4 mmol/L (3.5-5.5); Total Protein, Blood 6.2 g/dL (6.4-8.2)
[2023-09-23 06:36] LABS: BAND PERCENT MAN 4 % (0-8); BASOPHILS PERCENT MAN 0 % (0-2); EOSINOPHILS PERCENT MAN 0 % (0-6); LYMPHOCYTES ABSOLUTE MAN 0.27 K/mm3 (0.84-5.20); LYMPHOCYTES PERCENT MAN 3 % (21-46); METAMYELOCYTE ABSOLUTE MAN 0.27 K/mm3 (0.00-0.00); METAMYELOCYTE PERCENT MAN 3 % (0-0); MONOCYTES ABSOLUTE MAN 0.45 K/mm3 (0.16-1.47); MONOCYTES PERCENT MAN 5 % (4-13); MYELOCYTE ABSOLUTE MAN 0.18 K/mm3 (0.00-0.00); MYELOCYTE PERCENT MAN 2 % (0-0); NEUTROPHILS ABSOLUTE MAN 7.93 K/mm3 (1.96-9.15); SEG NEUTROPHILS PERCENT MAN 83 % (41-73); TOTAL CELLS COUNTED 100
[2023-09-23] MEDS ORDERED: NS 1,000 ML IV SCH ×2 (07:30→20:10)
[2023-09-23 07:32] VITALS: BP 136/102
[2023-09-23] MEDS ORDERED: CefTRIAXone Sodium 1,000 MG in NS 100 ML IV SCH (08:00)
[2023-09-23] MEDS ORDERED: Heparin Sodium,Porcine 5,000 UNIT/0.5 ML SDV SC SCH (09:00)
[2023-09-23] MEDS ORDERED: Gabapentin 100 MG Cap PO SCH (09:00)
--- NOTE | 2023-09-23 10:36 | NUR ---
TALKED TO DR BRITO. NO BM 09/17. OKAY START MIRALAX BID
[2023-09-23] MEDS ORDERED: Polyethylene Glycol 3350 17 gm PO SCH (10:50)
[2023-09-23 12:26] LABS: Albumin, Blood 2.5 g/dL (3.4-5.0); Anion Gap 10 mmol/L (3-11); Blood Urea Nitrogen 18 mg/dL (8-24); CO2, Blood 26 mmol/L (21-32); Calcium, Blood 8.7 mg/dL (8.5-10.1); Chloride, Blood 104 mmol/L (98-108); Creatinine, Blood 1.99 mg/dL (0.60-1.20); Glomerular Filtration Rate 34 (60-); Glucose, Blood 141 mg/dL (70-99); Phosphorus, Blood 2.9 mg/dL (2.5-4.9); Potassium, Blood 4.5 mmol/L (3.5-5.5); Sodium, Blood 135 mmol/L (136-145)
[2023-09-23 15:04] VITALS: BP 137/80
--- NOTE | 2023-09-23 17:42 | NUR ---
PT PLEASANT TODAY. TALKED ABOUT HIS SCHOOL ADMIN POSITION. REPLACED IV TODAY. HE GOT SHOWER TODAY. NO C/O PAIN. SON IN TO VISIT TODAY. ALL PLEASANT. NO NEW CONCERNS NOTED. BED IN LOW POSITION, CALL LITE IN REACH CALLS APPROP
[2023-09-23 20:05] VITALS: BP 139/94
[2023-09-24 03:43] VITALS: BP 167/113
[2023-09-24 05:33] LABS: Hemoglobin 9.7 g/dL (13.5-17.5); Mean Corpuscular HGB 31.4 pg (26.0-34.0); Mean Corpuscular HGB Conc 32.3 g/dL (31.5-36.5); Mean Corpuscular Volume 97 fL (80-100); Mean Platelet Volume 9.4 fL (9.1-12.4); Platelet Count 264 K/mm3 (150-400); RDW Coefficient Variation 14.1 % (11.7-14.2); RDW Standard Deviation 49.8 fL (35.1-46.3); Red Blood Cell Count 3.09 M/mm3 (4.30-5.90); White Blood Cell Count 9.64 K/mm3 (4.00-11.30)
[2023-09-24 06:15] LABS: Albumin, Blood 2.5 g/dL (3.4-5.0); Albumin/Globulin Ratio 0.7 (0.8-1.8); Bilirubin, Total 0.4 mg/dL (0.1-1.0); Bun/Creatinine Ratio 9.3 (12.0-20.0); Calcium, Blood 8.6 mg/dL (8.5-10.1); Creatinine, Blood 2.05 mg/dL (0.60-1.20); Globulin, Blood 3.7 g/dL (2.2-4.0); Potassium, Blood 4.7 mmol/L (3.5-5.5); Total Protein, Blood 6.2 g/dL (6.4-8.2)
[2023-09-24 06:36] LABS: BAND PERCENT MAN 4 % (0-8); BASOPHILS PERCENT MAN 0 % (0-2); EOSINOPHILS ABSOLUTE MAN 0.19 K/mm3 (0.00-0.68); EOSINOPHILS PERCENT MAN 2 % (0-6); LYMPHOCYTES ABSOLUTE MAN 0.38 K/mm3 (0.84-5.20); LYMPHOCYTES PERCENT MAN 4 % (21-46); METAMYELOCYTE ABSOLUTE MAN 0.28 K/mm3 (0.00-0.00); METAMYELOCYTE PERCENT MAN 3 % (0-0); MONOCYTES ABSOLUTE MAN 0.57 K/mm3 (0.16-1.47); MONOCYTES PERCENT MAN 6 % (4-13); MYELOCYTE ABSOLUTE MAN 0.67 K/mm3 (0.00-0.00); MYELOCYTE PERCENT MAN 7 % (0-0); NEUTROPHILS ABSOLUTE MAN 7.51 K/mm3 (1.96-9.15); SEG NEUTROPHILS PERCENT MAN 74 % (41-73); TOTAL CELLS COUNTED 100
[2023-09-24 07:19] VITALS: BP 171/103
[2023-09-24] MEDS ORDERED: NS 1,000 ML IV SCH (09:30)
[2023-09-24 14:49] VITALS: BP 145/77
[2023-09-24] MEDS ORDERED: Darbepoetin Alfa in Polysorbat 25 MCG/0.42 ML Syringe SC ONE (16:00)
[2023-09-24] MEDS ORDERED: Carvedilol 3.125 MG Tab PO SCH (17:00)
[2023-09-24 17:57] VITALS: BP 151/104
--- NOTE | 2023-09-24 18:06 | NUR ---
SUMMARY- AAOX3-DISORIENTED TO EXACT SITUATION. PT HAS A CONDOM CATH FOR 24 URINE COLLECTION. X1-2 W/WALKER AND GAIT BELT. PT REFUSED TO GET OOB TODAY. NO COMPLAINTS OF PAIN.
[2023-09-24 19:41] VITALS: BP 141/88
[2023-09-24] MEDS ORDERED: AmLODIPine Besylate 5 MG Tab PO SCH (21:00)
[2023-09-25 03:53] VITALS: BP 149/90
[2023-09-25 05:28] LABS: Hematocrit 30.8 % (37.0-53.0)
[2023-09-25 06:03] LABS: Albumin, Blood 2.4 g/dL (3.4-5.0); Anion Gap 9 mmol/L (3-11); Blood Urea Nitrogen 18 mg/dL (8-24); Bun/Creatinine Ratio 13.6 (12.0-20.0); CO2, Blood 26 mmol/L (21-32); Calcium, Blood 8.6 mg/dL (8.5-10.1); Chloride, Blood 107 mmol/L (98-108); Creatinine, Blood 1.32 mg/dL (0.60-1.20); Glomerular Filtration Rate 56 (60-); Glucose, Blood 116 mg/dL (70-99); Magnesium, Blood 2.1 mg/dL (1.6-2.4); Phosphorus, Blood 3.3 mg/dL (2.5-4.9); Potassium, Blood 4.4 mmol/L (3.5-5.5); Sodium, Blood 138 mmol/L (136-145); Uric Acid, Blood 3.7 mg/dL (3.5-7.2)
[2023-09-25] MEDS ORDERED: NS 1,000 ML IV SCH (07:10)
[2023-09-25 07:24] VITALS: BP 158/95
[2023-09-25 09:56] LABS: Cortisol, AM 13.6 ug/dL (6.7-22.6)
[2023-09-25 15:11] VITALS: BP 125/75
[2023-09-25] MEDS ORDERED: Carvedilol 6.25 MG Tab PO SCH (17:00)
--- NOTE | 2023-09-25 18:31 | NUR ---
SHIFT SUMMARY PT A&OX4. ON ROOM AIR IN NO RESPIRATORY DISTRESS. 1-2 PER ASSIST WITH FWW/GB TO BSC AND CHAIR. NO PAIN DURING THIS SHIFT. PROBABLE DISCHARGE TO FACILITY TOMORROW PER DR BRITO. NO FUTHER CONCERNS AT THIS TIME.
[2023-09-25 20:13] VITALS: BP 89/59
[2023-09-25 22:13] VITALS: BP 141/91
[2023-09-26 02:41] VITALS: BP 150/91
[2023-09-26 05:25] LABS: Hematocrit 31.4 % (37.0-53.0)
[2023-09-26 05:53] LABS: Albumin, Blood 2.5 g/dL (3.4-5.0); Anion Gap 9 mmol/L (3-11); Blood Urea Nitrogen 19 mg/dL (8-24); Bun/Creatinine Ratio 14.8 (12.0-20.0); CO2, Blood 26 mmol/L (21-32); Calcium, Blood 8.8 mg/dL (8.5-10.1); Chloride, Blood 105 mmol/L (98-108); Creatinine, Blood 1.28 mg/dL (0.60-1.20); Glomerular Filtration Rate 58 (60-); Glucose, Blood 103 mg/dL (70-99); Magnesium, Blood 2.1 mg/dL (1.6-2.4); Phosphorus, Blood 3.4 mg/dL (2.5-4.9); Potassium, Blood 4.3 mmol/L (3.5-5.5); Sodium, Blood 136 mmol/L (136-145)
[2023-09-26 07:18] VITALS: BP 158/108
--- NOTE | 2023-09-26 07:41 | NUR ---
A0X4, ASSISTED PT TO BED FROM CHAIR MOD ASSIST WITH WC, ASSISTED W REPOSITION, CALL LIGHT WN REACH SON AT BEDSIDE. DURING NIGHT PT WITH INCONTINENT EPISODE , PREFEERED CONDOM CATH FOR NIGHT. SLEPT THROUGH [facility]. HEARING AIDS AT BEDSIDE. CALL LIGHT WN REACH.
[2023-09-26] MEDS ORDERED: Carvedilol 6.25 MG Tab PO SCH (08:00)
[2023-09-26] MEDS ORDERED: Tamsulosin HCl 0.4 MG Cap PO SCH (09:00)
[2023-09-26] MEDS ORDERED: AMLO5 PO (14:37)
[2023-09-26] MEDS ORDERED: COREG12.5 M1 PO (14:38)
[2023-09-26] MEDS ORDERED: Flomax0.4 MG PO (14:38)
--- NOTE | 2023-09-26 17:00 | NUR ---
PT DISCHARGED TO FACILITY, REPORT GIVEN TO RN AT FACILITY. PT IS ALERT AND ORIENTED X4, ABLE TO MAKE NEEDS KNOWN. PT SCHEDULED TO SEE DR. CLAROS FOR FOLLOW UP 10/18 AT 2PM, PT AND FACILITY AWARE
[2023-09-28 05:01] LABS: ALDOSTERONE 5.9 ng/dL; ALDOSTERONE/RENINACTIVITY CALC 7.4 ratio (<=25.0); RENIN ACTIVITY 0.8 ng/mL/hr
[2023-09-28 08:44] LABS: CREATININE, URINE - PER 24H 1332 mg/d (800-2100); CREATININE, URINE - PER VOLUME 37 mg/dL; HOURS COLLECTED 24 hr; TOTAL VOLUME 3600 mL; VANILLYLMANDELIC ACID -PER 24H 3.6 mg/d (0.0-7.0); VANILLYLMANDELIC ACID -RAT CRT 3 mg/gCR (0-6)
== END 2023-09-26 15:41 | DRG 683 ==
LOC: ER 22:07 → MEDS 09-22 04:41
PROVIDERS: Emergency Medicine; Family Medicine; Internal Medicine Nephrology; ADMIT Student in an Organized Health Care Education/Training Program
DX: N17.9 Acute kidney failure, unspecified (principal); E87.1 Hypo-osmolality and hyponatremia; E11.22 Type 2 diabetes mellitus with diabetic chronic kidney disease; I95.9 Hypotension, unspecified; G20.A1 Parkinson's disease without dyskinesia, without mention of fluctuations; T36.8X5A Adverse effect of other systemic antibiotics, initial encounter; I25.10 Atherosclerotic heart disease of native coronary artery without angina pectoris; E86.0 Dehydration; Z66 Do not resuscitate; N18.30 Chronic kidney disease, stage 3 unspecified; I12.9 Hypertensive chronic kidney disease with stage 1 through stage 4 chronic kidney disease, or unspecified chronic kidney disease; M10.9 Gout, unspecified; E03.9 Hypothyroidism, unspecified; N28.89 Other specified disorders of kidney and ureter; N13.6 Pyonephrosis; E88.09 Other disorders of plasma-protein metabolism, not elsewhere classified; D63.1 Anemia in chronic kidney disease; E86.9 Volume depletion, unspecified; Z88.8 Allergy status to other drugs, medicaments and biological substances; Z95.5 Presence of coronary angioplasty implant and graft; Z79.82 Long term (current) use of aspirin; Z85.46 Personal history of malignant neoplasm of prostate; Z79.890 Hormone replacement therapy
CPT/HCPCS: 36415; 74176; 76770; 80053; 80069; 81001; 82088; 82533; 82550; 82728; 83540; 83550; 83605; 83735; 83970; 84244; 84550; 84585; 85014; 85018; 85025; 87040; 87086; 93005; 93010; 93975; 96360; 96361; 96365; 96372; 97110; 97162; 97165; 97530; 97535; 99285-25; A9270; G0378; J0696; J1644; J7030

== ENCOUNTER 2025-01-23 16:28 | Emergency (ER) | payer MEDICARE ==
[~2025-01-23] VITALS: Ht 170.2 cm; Wt 81.7 kg
[~2025-01-23 16:28] MED LIST changes: +AMLO5 PO; +COREG12.5 M1 PO; +Flomax0.4 MG PO; +POTA8 PO; +Simvastatin40 MG PO; +ZOLOFT10013 PO
[2025-01-23] MEDS ORDERED: POTA8 PO (16:55)
[2025-01-23] MEDS ORDERED: Synthroid/Levo0.2 MG (16:55)
[2025-01-23] MEDS ORDERED: ALLOPURINOL100 M1 PO (16:56)
[2025-01-23] MEDS ORDERED: HYDROcodone 5-APAP 325 TAB PO ONE ×2 (17:40→20:00)
[2025-01-23] MEDS ORDERED: Levodopa/Carbidopa 100 / 10 MG Tab PO ONE (17:45)
[2025-01-23 18:11] LABS: BASOPHILS ABSOLUTE AUTO 0.03 K/mm3 (0.00-0.23); BASOPHILS PERCENT AUTO 0 % (0-2); EOSINOPHILS ABSOLUTE AUTO 0.10 K/mm3 (0.00-0.68); EOSINOPHILS PERCENT AUTO 2 % (0-6); Hematocrit 38.3 % (37.0-53.0); Hemoglobin 12.9 g/dL (13.5-17.5); IMMATURE GRAN ABSOLUTE AUTO 0.05 K/mm3 (0.00-0.10); IMMATURE GRAN PERCENT AUTO 1 % (0-1); LYMPHOCYTES ABSOLUTE AUTO 0.67 K/mm3 (0.84-5.20); LYMPHOCYTES PERCENT AUTO 10 % (21-46); MONOCYTES ABSOLUTE AUTO 0.69 K/mm3 (0.16-1.47); MONOCYTES PERCENT AUTO 10 % (4-13); Mean Corpuscular HGB Conc 33.7 g/dL (31.5-36.5); Mean Corpuscular Volume 96 fL (80-100); NEUTROPHILS ABSOLUTE AUTO 5.30 K/mm3 (1.96-9.15); NEUTROPHILS PERCENT AUTO 78 % (41-73); NRBC ABSOLUTE 0.00 K/mm3 (0.00-0.02); NRBC Auto 0.0 /100 WBC (0.0-0.2); Platelet Count 148 K/mm3 (150-400); RDW Coefficient Variation 13.5 % (11.7-14.2); RDW Standard Deviation 48.1 fL (35.1-46.3)
[2025-01-23 18:18] LABS: Source, Urine Clean Catch
[2025-01-23 18:20] LABS: Bilirubin, Urine Neg (Neg); Glucose Qualitative, Urine Neg (Neg); Ketones, Urine Neg (Neg); Leukocyte Esterase, Urine Neg (Neg); Protein, Urine Neg (Neg); Specific Gravity, Urine 1.010 (1.003-1.022); Urobilinogen, Urine NORM (Normal)
[2025-01-23 18:26] LABS: Color, Urine Pale Yellow (P-Yellow)
[2025-01-23 18:52] LABS: Alanine Aminotransfer (ALT/SGP 13.0 U/L (12-78); Albumin, Blood 4.1 g/dL (3.4-5.0); Albumin/Globulin Ratio 1.2 (0.8-1.8); Anion Gap 9.0 mmol/L (3-11); Aspartate Aminotrans (AST/SGOT 24.0 U/L (12-37); Bilirubin, Total 0.7 mg/dL (0.1-1.0); Blood Urea Nitrogen 25.0 mg/dL (8-24); CO2, Blood 28.0 mmol/L (21-32); Calcium, Blood 9.4 mg/dL (8.5-10.1); Chloride, Blood 104.0 mmol/L (98-108); Creatinine, Blood 1.25 mg/dL (0.60-1.20); Globulin, Blood 3.3 g/dL (2.2-4.0); Glucose, Blood 98.0 mg/dL (70-99); Potassium, Blood 3.7 mmol/L (3.5-5.5); Sodium, Blood 137.0 mmol/L (136-145); Total Protein, Blood 7.4 g/dL (6.4-8.2)
[2025-01-23 19:15] VITALS: BP 160/101
[2025-01-23] MEDS ORDERED: LIDO700A20 TOP (20:06)
[2025-01-23] MEDS ORDERED: SENNA LAXATIVE8.6 MG PO (20:06)
[2025-01-23] MEDS ORDERED: OXAYDO5 M1 PO (20:06)
[2025-01-23] MEDS ORDERED: POLY500 PO (20:06)
[2025-01-23] MEDS ORDERED: ONDA4ODT MM (20:06)
[2025-01-23] MEDS ORDERED: RX Prepack 6 Tabs Oxycodone 5mg UD ONE (20:35)
== END 2025-01-23 20:36 | disposition home or self-care (01) ==
LOC: ER 16:28
PROVIDERS: Emergency Medicine
DX: S22.41XA Multiple fractures of ribs, right side, initial encounter for closed fracture (principal); S00.81XA Abrasion of other part of head, initial encounter; S80.211A Abrasion, right knee, initial encounter; D64.9 Anemia, unspecified; D69.6 Thrombocytopenia, unspecified; W18.30XA Fall on same level, unspecified, initial encounter
CPT/HCPCS: 70450; 71100; 72125; 73610; 80053; 81003; 83605; 85025; 90471; 90715; 93005; 93010; 99285-25; A9270

== ENCOUNTER 2025-03-02 12:16 | Observation (INO) | payer MEDICARE ==
[~2025-03-02] VITALS: Ht 177.8 cm; Wt 72.6 kg
[~2025-03-02 12:16] MED LIST changes: +ALLOPURINOL100 M1 PO; +LIDO700A20 TOP; +ONDA4ODT MM; +OXAYDO5 M1 PO; +POLY500 PO; +SENNA LAXATIVE8.6 MG PO; +Synthroid/Levo0.2 MG
[2025-03-02 13:09] LABS: BASOPHILS ABSOLUTE AUTO 0.03 K/mm3 (0.00-0.23); BASOPHILS PERCENT AUTO 0 % (0-2); EOSINOPHILS ABSOLUTE AUTO 0.09 K/mm3 (0.00-0.68); EOSINOPHILS PERCENT AUTO 1 % (0-6); Hematocrit 34.0 % (37.0-53.0); Hemoglobin 11.7 g/dL (13.5-17.5); IMMATURE GRAN ABSOLUTE AUTO 0.03 K/mm3 (0.00-0.10); IMMATURE GRAN PERCENT AUTO 0 % (0-1); LYMPHOCYTES ABSOLUTE AUTO 0.42 K/mm3 (0.84-5.20); LYMPHOCYTES PERCENT AUTO 6 % (21-46); MONOCYTES ABSOLUTE AUTO 0.61 K/mm3 (0.16-1.47); MONOCYTES PERCENT AUTO 9 % (4-13); Mean Corpuscular HGB Conc 34.4 g/dL (31.5-36.5); Mean Corpuscular Volume 96 fL (80-100); NEUTROPHILS ABSOLUTE AUTO 5.88 K/mm3 (1.96-9.15); NEUTROPHILS PERCENT AUTO 83 % (41-73); NRBC ABSOLUTE 0.00 K/mm3 (0.00-0.02); NRBC Auto 0.0 /100 WBC (0.0-0.2); Platelet Count 149 K/mm3 (150-400); RDW Coefficient Variation 13.4 % (11.7-14.2); RDW Standard Deviation 47.5 fL (35.1-46.3)
[2025-03-02] MEDS ORDERED: FentaNYL Citrate 50 MCG/ML 2 ML Injection IV ONE (13:10)
[2025-03-02 13:29] LABS: Alanine Aminotransfer (ALT/SGP 13.0 U/L (12-78); Albumin, Blood 3.6 g/dL (3.4-5.0); Albumin/Globulin Ratio 1.2 (0.8-1.8); Anion Gap 8.0 mmol/L (3-11); Aspartate Aminotrans (AST/SGOT 30.0 U/L (12-37); Bilirubin, Total 1.0 mg/dL (0.1-1.0); Blood Urea Nitrogen 27.0 mg/dL (8-24); CO2, Blood 27.0 mmol/L (21-32); Calcium, Blood 9.0 mg/dL (8.5-10.1); Chloride, Blood 106.0 mmol/L (98-108); Creatinine, Blood 1.21 mg/dL (0.60-1.20); Globulin, Blood 3.0 g/dL (2.2-4.0); Glucose, Blood 155.0 mg/dL (70-99); Potassium, Blood 3.9 mmol/L (3.5-5.5); Sodium, Blood 137.0 mmol/L (136-145); Total Protein, Blood 6.6 g/dL (6.4-8.2)
[2025-03-02 13:59] LABS: Source, Urine Clean Catch
[2025-03-02 14:01] LABS: Bilirubin, Urine Neg (Neg); Color, Urine Yellow (P-Yellow); Glucose Qualitative, Urine Neg (Neg); Ketones, Urine 1+ (Neg); Leukocyte Esterase, Urine Neg (Neg); Protein, Urine 2+ (Neg); Specific Gravity, Urine 1.020 (1.003-1.022); Urobilinogen, Urine NORM (Normal)
[2025-03-02 14:08] LABS: Red Blood Cells, Urine 0-2 /hpf (0-2); White Blood Cells, Urine 0-2 /hpf (0-5)
[2025-03-02] MEDS ORDERED: Levodopa/Carbidopa 100/25 MG Tab *CR PO SCH (18:00)
[2025-03-02] MEDS ORDERED: Levodopa/Carbidopa 100 / 25 MG Tab PO SCH (18:00)
[2025-03-02] MEDS ORDERED: Levodopa/Carbidopa 100 / 10 MG Tab PO SCH ×2 (18:00)
[2025-03-03] MEDS ORDERED: Diabetic GuaiFENesin 100 MG/5 ML 5MLUDC PO SCH (09:00)
[2025-03-03] MEDS ORDERED: GuaiFENesin 100 MG/5 ML 5ML UDC PO SCH (09:00)
[2025-03-03] MEDS ORDERED: Vitamin B Complex 1 EA Softgel PO SCH (11:00)
[2025-03-03] MEDS ORDERED: NS 1,000 ML BAG IR ONE (14:20)
[2025-03-03] MEDS ORDERED: NS 1,000 ML IV ONE (14:21)
[2025-03-03] MEDS ORDERED: FLU VACC TS2025(65UP)/MF59C/PF 45 MCG/0.5 ML SYRINGE IM SCH (14:45)
[2025-03-03] MEDS ORDERED: GUAI200 PO (16:24)
[2025-03-03] MEDS ORDERED: VITAMIN B121000 MCG PO (16:25)
[2025-03-03] MEDS ORDERED: MELATONIN5 M1 PO (16:25)
[2025-03-03] MEDS ORDERED: VITAMIN D31250 MC2 PO (16:26)
[2025-03-03] MEDS ORDERED: FURO40 PO (16:29)
[2025-03-03] MEDS ORDERED: MIDO5 PO (16:31)
[2025-03-03] MEDS ORDERED: POTA8 PO (16:32)
[2025-03-03 19:42] VITALS: BP 119/71
[2025-03-04] VITALS (8 sets, daily range): BP systolic 126–194; BP diastolic 77–103
--- NOTE | 2025-03-04 04:16 | NUR ---
SHIFT SUMMARY WHEN THIS RN ARRIVED ON SHIFT, DAY SHIFT RN REPORTED THAT PATIENT HAD HAD SEIZURE LIKE ACTIVITY AT APPROX 1830, BUT THAT IT HAD RESOLVED WITHIN 30 SECONDS. PATIENT WAS HAVING HALLUCINATIONS AT THE TIME OF BEDSIDE REPORT. DR BABCOCK TO BEDSIDE AT APPROX 1915 AND GAVE THIS RN VERBAL ORDERS FOR SEROQUEL FOR AGITATION AND PRN ATIVAN FOR SEIZURES. DR BABCOCK ALSO STATED THAT PATIENT CODE STATUS WAS TO BE CHANGED TO DNR AT THAT TIME. PATIENT A/O X2-3 THROUGHOUT SHIFT, BEDREST WITH NO NOTED SEIZURE ACTIVITY. BASELINE TREMORS NOTED. VOIDED WITH RN ASSISTANCE IN URINAL, LINO COLORED URINE. PT ABLE TO REPOSITION HIMSELF IN THE BED. NO ACUTE CHANGES THROUGHOUT SHIFT. BED IN LOWEST POSITION, BED ALARM ON FOR SAFETY. WILL REPORT TO DAYSHIFT RN.
[2025-03-04 05:55] LABS: BASOPHILS ABSOLUTE AUTO 0.01 K/mm3 (0.00-0.23); BASOPHILS PERCENT AUTO 0 % (0-2); EOSINOPHILS ABSOLUTE AUTO 0.21 K/mm3 (0.00-0.68); EOSINOPHILS PERCENT AUTO 4 % (0-6); Hematocrit 33.1 % (37.0-53.0); Hemoglobin 11.4 g/dL (13.5-17.5); IMMATURE GRAN ABSOLUTE AUTO 0.04 K/mm3 (0.00-0.10); IMMATURE GRAN PERCENT AUTO 1 % (0-1); LYMPHOCYTES ABSOLUTE AUTO 0.54 K/mm3 (0.84-5.20); LYMPHOCYTES PERCENT AUTO 10 % (21-46); MONOCYTES ABSOLUTE AUTO 0.70 K/mm3 (0.16-1.47); MONOCYTES PERCENT AUTO 14 % (4-13); Mean Corpuscular HGB Conc 34.4 g/dL (31.5-36.5); Mean Corpuscular Volume 96 fL (80-100); NEUTROPHILS ABSOLUTE AUTO 3.68 K/mm3 (1.96-9.15); NEUTROPHILS PERCENT AUTO 71 % (41-73); NRBC ABSOLUTE 0.00 K/mm3 (0.00-0.02); NRBC Auto 0.0 /100 WBC (0.0-0.2); Platelet Count 130 K/mm3 (150-400); RDW Coefficient Variation 13.5 % (11.7-14.2); RDW Standard Deviation 47.6 fL (35.1-46.3)
[2025-03-04] MEDS ORDERED: Levothyroxine Sodium 0.15 MG Tab PO SCH (06:00)
[2025-03-04 06:21] LABS: Alanine Aminotransfer (ALT/SGP 13.0 U/L (12-78); Albumin, Blood 3.3 g/dL (3.4-5.0); Albumin/Globulin Ratio 1.1 (0.8-1.8); Anion Gap 7.0 mmol/L (3-11); Aspartate Aminotrans (AST/SGOT 19.0 U/L (12-37); Bilirubin, Total 0.8 mg/dL (0.1-1.0); Blood Urea Nitrogen 21.0 mg/dL (8-24); CO2, Blood 27.0 mmol/L (21-32); Calcium, Blood 8.9 mg/dL (8.5-10.1); Chloride, Blood 106.0 mmol/L (98-108); Creatinine, Blood 1.18 mg/dL (0.60-1.20); Globulin, Blood 2.9 g/dL (2.2-4.0); Glucose, Blood 106.0 mg/dL (70-99); Potassium, Blood 3.5 mmol/L (3.5-5.5); Sodium, Blood 136.0 mmol/L (136-145); Total Protein, Blood 6.2 g/dL (6.4-8.2)
[2025-03-04] MEDS ORDERED: Enoxaparin 40 MG/0.4 ML SYR SC SCH (09:00)
[2025-03-04] MEDS ORDERED: Cholecalciferol 1000 Unit Tablet (=25MCG) PO SCH (09:00)
--- NOTE | 2025-03-04 17:32 | NUR ---
SHIFT SUMMARY PATIENT IS A&OX4, FORGETFUL. COOPERATIVE WITH CARE, DOES NOT USE THE CALL SYSTEM. HE IS ON ROOM AIR AND SATURATION >92%. AMBULATES WITH SBA, FWW, GAITBELT. PLAN TO DISCHARGE TO SNF, AWAITING INSURANCE APPROVAL. HE'S CURRENTLY UP IN THE CHAIR FOR DINNER, CALL LIGHT WITHIN REACH.
[2025-03-05 03:00] VITALS: BP 159/100
--- NOTE | 2025-03-05 04:22 | NUR ---
SHIFT SUMMARY PATIENT A/O X4 THROUGHOUT SHIFT. UTILIZING CALL LIGHT APPROPRIATELY. UP TO BATHROOM WITH ONE ASSIST AND FWW. URINATING CLEAR YELLOW URINE. NO REPORT OF CHEST PAIN/PRESSURE. AWAITING SNF PLACEMENT/INSURANCE APPROVAL FOR SNF. NO ACUTE CHANGES THROUGHOUT SHIFT. BED IN LOWEST POSITION, CALL LIGHT IN REACH. WILL REPORT TO ONCOMING RN.
[2025-03-05 07:39] VITALS: BP 142/109
--- NOTE | 2025-03-05 11:29 | NUR ---
DC-[id number] PT LEFT IN STABLE CONDITION WITH TRANSPORT VIA . PT LEFT WITH ALL BELONGINGS. THIS RN GAVE REPORT TO [facility] NURSE, KIT. ALL QUESTIONS ANSWERED.
[2025-03-05] MEDS ORDERED: ENOX40I SC (11:57)
[2025-03-05] MEDS ORDERED: QUET25 PO (12:00)
[2025-03-05] MEDS ORDERED: AMLO10 PO (12:01)
[2025-03-05] MEDS ORDERED: Vitamin B Comple1 EA PO (12:01)
== END 2025-03-05 11:30 ==
LOC: ER 12:16 → MEDS 12:17 → ER 03-03 12:17 → MEDS 03-03 12:17
PROVIDERS: ADMIT Internal Medicine
DX: G20.A1 Parkinson's disease without dyskinesia, without mention of fluctuations (principal); G31.83 Neurocognitive disorder with Lewy bodies; F02.811 Dementia in other diseases classified elsewhere, unspecified severity, with agitation; I95.1 Orthostatic hypotension; I10 Essential (primary) hypertension; E03.9 Hypothyroidism, unspecified; E05.80 Other thyrotoxicosis without thyrotoxic crisis or storm; I48.19 Other persistent atrial fibrillation; I25.10 Atherosclerotic heart disease of native coronary artery without angina pectoris; N40.0 Benign prostatic hyperplasia without lower urinary tract symptoms; M10.9 Gout, unspecified; M19.072 Primary osteoarthritis, left ankle and foot; M20.42 Other hammer toe(s) (acquired), left foot; M47.812 Spondylosis without myelopathy or radiculopathy, cervical region; Z66 Do not resuscitate; Z79.82 Long term (current) use of aspirin; Z79.890 Hormone replacement therapy; Z79.899 Other long term (current) drug therapy; Z88.8 Allergy status to other drugs, medicaments and biological substances; Z95.5 Presence of coronary angioplasty implant and graft; Z95.818 Presence of other cardiac implants and grafts
CPT/HCPCS: 36415; 70450; 71046; 72125; 73522; 73620; 80053; 81001; 83605; 84439; 84443; 85025; 92526; 92610; 93005; 93010; 96361; 96372; 96374; 96374-59; 96375-59; 97110-CQ; 97112-CQ; 97162; 97165; 97530; 97535; 99285-25; A9270; G0378; J1650; J3010; J7030; J7120

== ENCOUNTER 2025-03-20 13:06 | Emergency (ER) | payer OTHER, MEDICARE ==
[~2025-03-20] VITALS: Ht 177.8 cm; Wt 93.0 kg
[~2025-03-20 13:06] MED LIST changes: +AMLO10 PO; +ENOX40I SC; +GUAI200 PO; +MELATONIN5 M1 PO; +MIDO5 PO; +QUET25 PO; +VITAMIN B121000 MCG PO; +VITAMIN D31250 MC2 PO; +Vitamin B Comple1 EA PO
[2025-03-20 13:29] VITALS: BP 111/75
== END 2025-03-20 17:24 | disposition home or self-care (01) ==
LOC: ER 13:06
DX: S01.81XA Laceration without foreign body of other part of head, initial encounter (principal); Z88.8 Allergy status to other drugs, medicaments and biological substances; Z79.899 Other long term (current) drug therapy; Z79.82 Long term (current) use of aspirin; Z59.89 Other problems related to housing and economic circumstances; W01.198A Fall on same level from slipping, tripping and stumbling with subsequent striking against other object, initial encounter
CPT/HCPCS: 70450

== ENCOUNTER → 2025-03-29 | Outpatient (CLI) | payer MEDICARE | END | disposition home or self-care (01) | LOC: LAB 10:38 → LAB SHORT 10:38 | DX: N39.0 Urinary tract infection, site not specified (principal) | CPT/HCPCS: 87086 ==